=== PATIENT | female | born 1980 | race Two or more races ===

== ENCOUNTER 2020-03-27 13:17 | Emergency (ER) | payer OTHER ==
[~2020-03-27] VITALS: Ht 157.5 cm; Wt 66.7 kg
[2020-03-27] MEDS ORDERED: AMOX-CLAV 875-1 EACH (13:38)
== END 2020-03-27 15:29 | disposition home or self-care (01) ==
LOC: ER 13:17
DX: L03.113 Cellulitis of right upper limb (principal); T65.891A Toxic effect of other specified substances, accidental (unintentional), initial encounter; Y92.89 Other specified places as the place of occurrence of the external cause

== ENCOUNTER 2023-09-02 00:11 | Emergency (ER) | payer OTHER ==
[~2023-09-02] VITALS: Ht 160 cm; Wt 81.6 kg
[~2023-09-02 00:11] MED LIST: AMOX-CLAV 875-1 EACH
[2023-09-02] MEDS ORDERED: KETOROLAC TROMETHAMINE 30 MG VIAL IM STA (08:48)
[2023-09-02] MEDS ORDERED: KETOROLAC TROMETHAMINE 30 MG VIAL ONE (08:52)
== END 2023-09-02 10:31 | disposition home or self-care (01) ==
LOC: ER 00:12
DX: S92.315A Nondisplaced fracture of first metatarsal bone, left foot, initial encounter for closed fracture (principal); X58.XXXA Exposure to other specified factors, initial encounter; Y93.89 Activity, other specified; Y92.89 Other specified places as the place of occurrence of the external cause; Y99.9 Unspecified external cause status; Z91.013 Allergy to seafood

== ENCOUNTER 2023-11-19 23:41 | Emergency (ER) | payer OTHER ==
[~2023-11-19] VITALS: Ht 167.6 cm; Wt 99.8 kg
[2023-11-20] MEDS ORDERED: ORPHENADRINE CITRATE 30 MG/ML AMPUL IM STA (02:02)
[2023-11-20] MEDS ORDERED: KETOROLAC TROMETHAMINE 60 MG VIAL IM STA (02:02)
== END 2023-11-20 02:13 | disposition home or self-care (01) ==
LOC: ER 23:43
DX: M43.6 Torticollis (principal); V49.88XA Car occupant (driver) (passenger) injured in other specified transport accidents, initial encounter; Y93.89 Activity, other specified; Y92.89 Other specified places as the place of occurrence of the external cause; Y99.8 Other external cause status; Z91.013 Allergy to seafood